=== PATIENT | male | born 2000 | race Caucasian/White ===

== ENCOUNTER 2022-10-11 05:34 | Outpatient (CLI) | payer BC ==
[~2022-10-11] VITALS: Ht 177.8 cm; Wt 98.0 kg
[2022-10-11] MEDS ORDERED: SULF1TAB38 PO (12:26)
== END 2022-10-11 12:29 | disposition home or self-care (01) ==
LOC: PREOP 05:34
PROVIDERS: ATTEND Surgery
DX: Z01.818 Encounter for other preprocedural examination (principal)

== ENCOUNTER 2022-10-18 08:10 | Day surgery (SDC) | payer BC ==
[~2022-10-18] VITALS: Ht 177.8 cm; Wt 98.0 kg
[2022-10-18] VITALS (11 sets, daily range): BP systolic 126–148; BP diastolic 72–84
[~2022-10-18 08:10] MED LIST: SULF1TAB38 PO
[2022-10-18] MEDS ORDERED: ceFAZolin INJECTION 2,000 MG in NS (IVPB) 50 ML IV ONE (08:45)
[2022-10-18] MEDS ORDERED: LACTATED RINGERS 1,000 ML IV PRN (08:45)
--- NOTE | 2022-10-18 09:43 | Progress Note-Pre Operative ---
Pre-Operative Progress Note Date of Available H&P: Oct 10, 2022 Date H&P Reviewed: Oct 18, 2022 Time H&P Reviewed: 09:33 History & Physical: H&P Reviewed, Patient Examed, No changes noted Pre-Operative Diagnosis: Pilonidal cyst with abscess NAZARIO DARBY DO Oct 18, 2022 09:42
[2022-10-18] MEDS ORDERED: proPOfol 200 MG/20 ML (DIPRIVAN) VIAL IV ONE (09:46)
[2022-10-18] MEDS ORDERED: LIDOCAINE PF 2% 5 ML (XYLOCAINE) VIAL ONE (09:46)
[2022-10-18] MEDS ORDERED: GLYCOPYRROLATE 0.2 MG/ML (ROBINUL) 2 ML VIAL ONE (09:46)
[2022-10-18] MEDS ORDERED: ONDANSETRON 4 MG/2 ML (SDV) Z0FRAN ONE (09:46)
[2022-10-18] MEDS ORDERED: ROCURONIUM 10 MG/ML 5 ML SYRINGE IV ONE (09:46)
[2022-10-18] MEDS ORDERED: NEOSTIGMINE 3 MG/3 ML VIAL ONE (09:46)
[2022-10-18] MEDS ORDERED: MIDAZOLAM 2 MG/2 ML (VERSED) VIAL ONE (09:46)
[2022-10-18] MEDS ORDERED: fentaNYL INJ 100 MCG/2 ML AMP ONE (09:46)
[2022-10-18] MEDS ORDERED: morphine INJ 10 MG/ML 1ML (SYR OR VIAL) IVP ONE ×2 (10:00→10:30)
[2022-10-18] MEDS ORDERED: ONDANSETRON 4 MG/2 ML (SDV) Z0FRAN IVP PRN ×2 (10:00→10:30)
[2022-10-18] MEDS ORDERED: HYDROmorphone 2 MG/ML VIAL (DILAUDID) IV ONE (10:00)
[2022-10-18] MEDS ORDERED: BUP/EPI 0.25% 1:200,000 (MARCAINE) 30 ML VIAL ONE (10:11)
--- NOTE | 2022-10-18 10:17 | Anesthesia-General Post-Op ---
General Patient Condition Mental Status/LOC: Same as Preop Cardiovascular: Satisfactory Nausea/Vomiting: Absent Respiratory: Satisfactory Pain: Controlled Complications: Absent Post Op Complications Complications None Follow Up Care/Instructions Patient Instructions None needed. Anesthesia/Patient Condition Patient Condition Patient is doing well, no complaints, stable vital signs, no apparent adverse anesthesia problems. No complications reported per nursing. CECILE HOOD CRNA Oct 18, 2022 10:17
--- NOTE | 2022-10-18 10:48 | Progress Note-Post Operative ---
Post-Operative Progess Note Surgeon (s)/Lifeguard (s) Surgeon NAZARIO DARBY DO Lifeguard: KRISTIE Oliveira Pre-Operative Diagnosis Pilonidal cyst with abscess Post-Operative Diagnosis same Procedure & Operative Findings Date of Procedure 10/18/22 Procedure Performed/Findings PROCEDURE PERFORMED: Excision of pilonidal cyst with iodoform packing; 4.6 x 2.4 cm INDICATION FOR PROCEDURE: The patient is a 22 male , who has a pilonidal cyst that has been draining and he wants to get this removed. FINDINGS: The patient had a pilonidal cyst. It was actually just midline and once I opened I found a large space of abscess underneath the skin; that I hadn't expected. There was necrotic tissue and hair in the abscess cavity. The spot was directly between the two buttock cheeks. PROCEDURE NOTE: After informed consent was obtained, the patient was brought to the operating room. He was intubated and placed on table in a prone position. He was sterilely prepped and draped in a normal fashion. The lidocaine was used to infiltrate the skin around this pilonidal cyst. It was right in the gluteal crease. I elected to do an elliptical incision around the two small openings in the midline of the pilonidal cyst. Made the incision with a #15 blade, carried down through the skin into subcutaneous tissue, deepened down to subcutaneous tissue with Bovie electrocautery. I immediately found a large abscess cavity that was all the down to the sacrum. Trying to remove all of the necrotic tissue and hair in abscess cavity and the roughly debriding the area with bovie cautery. I measured the cavity at 4.6 x 2.4 cm. All tissue was passed off the table. Hemostasis was obtained using Bovie electrocautery. Copiously irrigated with normal saline and then packed with a one inch iodoform packing. The area was cleaned and dried. A pressure dressing was placed. The patient was transferred to recovery room in stable condition. Sponge, instrument and needle count correct at the end of the case. Anesthesia Type GET Estimated Blood Loss Estimated blood loss (mL): scant Specimens/Packing Specimens Removed necrotic tissue, skin of pilonidal cyst NAZARIO DARBY DO Oct 18, 2022 10:48
[2022-10-18] MEDS ORDERED: ACHD5005 PO (10:50)
--- NOTE | 2022-10-18 10:52 | Discharge Inst-Surgical ---
Discharge Inst-Surgical Depart Medication/Instructions New, Converted or Re-Newed RX: Transmitted to Pharmacy Patient Instructions Follow up Appt: Make appointment for 1 week. [phone] Instructions: No lifting greater than 20 pounds. No strenuous activity. May shower in 24 hours, no tub bath or soaking. Use incentive spirometer at home as directed. No Smoking Skin/Wound Care: May remove bandages in am. You need to leave the packing for a day and then change it daily. Can come to the office for help. Symptoms to Report: Appetite Changes, Extremity Discoloration, Numbness/Tingling, Swelling Increased, Bleeding Excessive, Eyesight Changes, Pain Increased, Urine Color Change, Constipation(Persistent), Fever over 101 degree F, Pain/Pressure in chest, Urinating Difficulty, Cough Up/Vomit Blood, Heart Beat Irreg/Pounding, Pain/Pressure in jaw, Cramps in feet or legs, Lightheadedness, Pain/Pressure in shoulder, Diarrhea(Persistent), Memory Changes Suddenly, Questions/Concerns, Weight gain consecutive days, Dizziness/Fainting, Nausea/Vomiting, Shortness of Breath, Weight gain over 2 pounds If questions or concerns contact your physician Or seek help at emergency department. Activity Activity as Tolerated: Yes Activity Instructions: Avoid Stress to Incision Driving Instructions: No Driving/Refer to Dr. Urbano Discharge Diet: No Restrictions Diet After 24 Hours: Clear Liquid if Nauseous If Any Problems/Questions/Issu: Contact Your Physician, Go to Emergency Room Skin/Wound Care Infection Signs and Symptoms: Increased Redness, Foul Odor of Wound, Increased Drainage, Skin Itchy or Has a Rash, Increased Swelling, Temperature Above 101 F Bathing Instructions: NAZARIO Esteves DO Oct 18, 2022 10:52
[2022-10-18] MEDS ORDERED: BUP/EPI 0.25% 1:200,000 (MARCAINE) 30 ML VIAL INJ ONE (11:01)
[2022-10-18] MEDS ORDERED: SEVOFLURANE (ULTANE) 15 ML INHAL SOLN ONE (11:21)
--- NOTE | 2022-10-18 12:10 | Anesthesia-General Post-Op ---
General Patient Condition Mental Status/LOC: Same as Preop Cardiovascular: Satisfactory Nausea/Vomiting: Absent Respiratory: Satisfactory Pain: Controlled Complications: Absent Post Op Complications Complications None Follow Up Care/Instructions Patient Instructions None needed. Anesthesia/Patient Condition Patient Condition Patient is just finishing his time in PACU and he is doing well, no complaints, stable vital signs, no apparent adverse anesthesia problems. No complications reported per nursing. YENNI MCKEON DO Oct 18, 2022 12:10
[2022-10-18] MEDS ORDERED: HYDROcodone/APAP 5 MG/325 MG (LORTAB) TAB PO ONE (12:30)
[2022-10-18] MEDS ORDERED: HYDROcodone/APAP 5 MG/325 MG (LORTAB) TAB ONE (12:33)
== END 2022-10-18 14:05 | disposition home or self-care (01) ==
LOC: SDC 08:10
PROVIDERS: ATTEND Surgery
DX: L05.01 Pilonidal cyst with abscess (principal); E66.9 Obesity, unspecified; Z68.31 Body mass index [BMI] 31.0-31.9, adult; Z28.310 Unvaccinated for COVID-19
CPT/HCPCS: 87081; 88304